=== PATIENT | female | born 1985 | race American Indian/Alaskan Native ===

== ENCOUNTER 2019-06-16 09:37 | Emergency (ER) | payer SELFPAY ==
[2019-06-16] MEDS ORDERED: SODIUM CHLORIDE 0.9% 1000 ML 1,000 ML IV ONE ×2 (11:40→13:48)
[2019-06-16 11:55] LABS: Basophils % (Auto) 0.5 % (0.0-1.8); Eosinophils % (Auto) 0.2 % (0.0-4.3); Hematocrit 37.2 % (30.3-42.9); Hemoglobin 12.3 gm/dl (10.1-14.3); Lymphocytes % (Auto) 17.1 % (13.4-35.0); Mean Corpuscular HGB Conc 33 % (30-34); Mean Corpuscular Volume 81 fl (79-97); Monocytes # (Auto) 0.3 K/mm3 (0.0-0.8); Monocytes % (Auto) 4.9 % (0.0-7.3); Platelet Count 342 K/mm3 (140-440); Red Cell Distribution Width 14.5 % (13.2-15.2)
[2019-06-16 12:00] LABS: Calcium 9.7 mg/dL (8.4-10.2)
[2019-06-16 12:04] LABS: Alanine Aminotransferase 9 units/L (7-56); Albumin 4.6 g/dL (3.9-5)
[2019-06-16 12:09] LABS: Bilirubin,Direct < 0.2 mg/dL (0-0.2)
--- NOTE | 2019-06-16 13:17 | Emergency Department Report ---
ED General Adult HPI - General Chief complaint: Overdose Stated complaint: ACCIDENTAL OVERDOSE Time Seen by Provider: 06/16/19 10:19 Source: patient, EMS Mode of arrival: Stretcher Limitations: No Limitations - History of Present Illness Initial comments: This is a 34-year-old female who is giving a very variable history following a admitted overdose. She told EMS staff that she took a handful of amlodipine because she was mad at her boyfriend. She also stated that she "washed it down with wine". She arrives here and states to me that she only took one 10 mg tablet because her blood pressure was elevated. I asked her what her blood pressure was at the time and she stated she did not take it. She did admit to me that she was upset about her boyfriend. Apparently she told the mental health counselor that she had had a verbal altercation with her boyfriend. She does not admit to previous hospitalizations for overdose. However she has been treated for anxiety and depression in the past. Despite the alleged overdose on calcium trout analia, the patient arrives with tachycardia. -: Gradual Severity scale (0 -10): 0 Associated Symptoms: denies other symptoms - Related Data Allergies Allergy/AdvReac Type Severity Reaction Status Date / Time No Known Allergies Allergy Verified 06/16/19 10:39 ED Review of Systems ROS: Stated complaint: ACCIDENTAL OVERDOSE Other details as noted in HPI Constitutional: denies: chills, fever Eyes: denies: eye pain, eye discharge, vision change ENT: denies: ear pain, throat pain Respiratory: denies: cough, shortness of breath, wheezing Cardiovascular: denies: chest pain, palpitations Endocrine: no symptoms reported Gastrointestinal: denies: abdominal pain, nausea, diarrhea Genitourinary: denies: urgency, dysuria, discharge Musculoskeletal: denies: back pain, joint swelling, arthralgia Skin: denies: rash, lesions Neurological: denies: headache, weakness, paresthesias Psychiatric: as per HPI, anxiety, other (upset about boyfriend). denies: depression Hematological/Lymphatic: denies: easy bleeding, easy bruising ED Past Medical Hx - Past Medical History Previous Medical History?: Yes Hx Hypertension: Yes Hx Psychiatric Treatment: Yes (depression, anxiety) - Surgical History Past Surgical History?: No - Social History Smoking Status: Never Smoker Other Social History: Verbal altercation with boyfriend. ED Physical Exam - General Limitations: No Limitations General appearance: alert, in no apparent distress, anxious - Head Head exam: Present: atraumatic, normocephalic - Eye Eye exam: Present: normal appearance. Absent: scleral icterus - ENT ENT exam: Present: mucous membranes moist - Neck Neck exam: Present: normal inspection. Absent: tenderness, meningismus - Respiratory Respiratory exam: Present: normal lung sounds bilaterally. Absent: respiratory distress - Cardiovascular Cardiovascular Exam: Present: normal rhythm, tachycardia. Absent: systolic murmur, diastolic murmur, rubs, gallop - GI/Abdominal GI/Abdominal exam: Present: soft, normal bowel sounds. Absent: distended, tenderness, guarding, rebound - Extremities Exam Extremities exam: Present: normal inspection - Back Exam Back exam: Present: normal inspection - Neurological Exam Neurological exam: Present: alert, oriented X3, CN II-XII intact. Absent: motor sensory deficit - Psychiatric Psychiatric exam: Present: normal affect, normal mood - Skin Skin exam: Present: warm, dry, intact, normal color. Absent: rash ED Course Vital Signs 06/16/19 06/16/19 06/16/19 10:19 10:30 10:32 Temperature 98.2 F Pulse Rate 136 H 125 H 135 H Respiratory 25 H 28 H 25 H Rate Blood Pressure 110/50 Blood Pressure 104/49 [Left] O2 Sat by Pulse 100 98 100 Oximetry 06/16/19 06/16/19 06/16/19 10:45 11:00 11:15 Temperature Pulse Rate 126 H 120 H 116 H Respiratory 14 25 H 26 H Rate Blood Pressure 104/55 102/54 101/54 Blood Pressure [Left] O2 Sat by Pulse 99 100 100 Oximetry 06/16/19 06/16/19 06/16/19 11:30 11:45 12:00 Temperature Pulse Rate 124 H 122 H 130 H Respiratory 19 12 24 Rate Blood Pressure 103/53 107/55 107/54 Blood Pressure [Left] O2 Sat by Pulse 100 100 100 Oximetry 06/16/19 06/16/19 06/16/19 12:15 12:30 12:45 Temperature Pulse Rate 125 H 129 H 133 H Respiratory 20 19 16 Rate Blood Pressure 102/55 110/56 102/51 Blood Pressure [Left] O2 Sat by Pulse 100 100 100 Oximetry 06/16/19 06/16/19 06/16/19 13:00 13:03 13:15 Temperature Pulse Rate 123 H 125 H 116 H Respiratory 23 19 20 Rate Blood Pressure 111/56 104/58 Blood Pressure 114/54 [Left] O2 Sat by Pulse 100 100 100 Oximetry - Reevaluation(s) Reevaluation #1: Patient with a history of depression and giving guarded history which is quite variable. She will be observed overnight. She will be referred to psychiatry for ultimate decision. She is placed on a mental health hold 1013 status pending psychiatric evaluation. 06/16/19 13:19 Reevaluation #2: 06/16/19 13:29 General with persistent tachycardia in the 110s. She will remain on a playground monitor. She'll be seen by psychiatry tomorrow for final disposition. She is clinically stable at this time. Reevaluation #3: 1013. Patient to remain on the monitor. Psychiatric clearance or disposition is anticipated. 06/16/19 13:49 ED Medical Decision Making - Lab Data Result diagrams: 06/16/19 10:28 06/16/19 10:28 Laboratory Results - last 24 hr 06/16/19 06/16/19 06/16/19 10:28 10:28 10:28 WBC RBC Hgb Hct MCV MCH MCHC RDW Plt Count Lymph % (Auto) [place] % (Auto) Eos % (Auto) Baso % (Auto) Lymph # [place] # Eos # Baso # Seg Neutrophils % Seg Neutrophils # Sodium 138 Potassium 3.7 Chloride 104.6 Carbon Dioxide 18 L Anion Gap 19 BUN 8 Creatinine 1.2 Estimated GFR 51 BUN/Creatinine Ratio 7 Glucose 113 H Calcium 9.7 Total Bilirubin Direct Bilirubin Indirect Bilirubin AST ALT Alkaline Phosphatase Total Protein Albumin Albumin/Globulin Ratio TSH Free T4 Urine Color Urine Turbidity Urine pH Ur Specific [place] Urine Protein Urine Glucose (UA) Urine Ketones Urine Blood Urine Nitrite Ur Reducing Substances Urine Bilirubin Urine Ictotest Urine Urobilinogen Ur Leukocyte Esterase Urine WBC (Auto) Urine RBC (Auto) U Epithel Cells (Auto) Urine Bacteria (Auto) Urine HCG, Qual Salicylates < 0.3 L Urine Opiates Screen Urine Methadone Screen Acetaminophen < 5.0 L Ur Barbiturates Screen Ur Phencyclidine Scrn Ur Amphetamines Screen U Benzodiazepines Scrn Urine Cocaine Screen U Marijuana (THC) Screen Plasma/Serum Alcohol 06/16/19 06/16/19 06/16/19 10:28 10:28 10:28 WBC 5.9 RBC 4.60 Hgb 12.3 Hct 37.2 MCV 81 MCH 27 L MCHC 33 RDW 14.5 Plt Count 342 Lymph % (Auto) 17.1 [place] % (Auto) 4.9 Eos % (Auto) 0.2 Baso % (Auto) 0.5 Lymph # 1.0 L [place] # 0.3 Eos # 0.0 Baso # 0.0 Seg Neutrophils % 77.3 H Seg Neutrophils # 4.5 Sodium Potassium Chloride Carbon Dioxide Anion Gap BUN Creatinine Estimated GFR BUN/Creatinine Ratio Glucose Calcium Total Bilirubin 0.20 Direct Bilirubin < 0.2 Indirect Bilirubin 0.0 AST 14 ALT 9 Alkaline Phosphatase 51 Total Protein 8.2 Albumin 4.6 Albumin/Globulin Ratio 1.3 TSH Free T4 Urine Color Urine Turbidity Urine pH Ur Specific [place] Urine Protein Urine Glucose (UA) Urine Ketones Urine Blood Urine Nitrite Ur Reducing Substances Urine Bilirubin Urine Ictotest Urine Urobilinogen Ur Leukocyte Esterase Urine WBC (Auto) Urine RBC (Auto) U Epithel Cells (Auto) Urine Bacteria (Auto) Urine HCG, Qual Salicylates Urine Opiates Screen Urine Methadone Screen Acetaminophen Ur Barbiturates Screen Ur Phencyclidine Scrn Ur Amphetamines Screen U Benzodiazepines Scrn Urine Cocaine Screen U Marijuana (THC) Screen Plasma/Serum Alcohol < 0.01 06/16/19 06/16/19 06/16/19 12:03 13:03 13:03 WBC RBC Hgb Hct MCV MCH MCHC RDW Plt Count Lymph % (Auto) [place] % (Auto) Eos % (Auto) Baso % (Auto) Lymph # [place] # Eos # Baso # Seg Neutrophils % Seg Neutrophils # Sodium Potassium Chloride Carbon Dioxide Anion Gap BUN Creatinine Estimated GFR BUN/Creatinine Ratio Glucose Calcium Total Bilirubin Direct Bilirubin Indirect Bilirubin AST ALT Alkaline Phosphatase Total Protein Albumin Albumin/Globulin Ratio TSH 2.540 Free T4 1.37 Urine Color Straw Urine Turbidity Clear Urine pH 6.0 Ur Specific [place] 1.004 Urine Protein <15 mg/dl Urine Glucose (UA) Neg Urine Ketones Neg Urine Blood Sm Urine Nitrite Neg Ur Reducing Substances Not Reportable Urine Bilirubin Neg Urine Ictotest Not Reportable Urine Urobilinogen < 2.0 Ur Leukocyte Esterase Neg Urine WBC (Auto) 12.0 H Urine RBC (Auto) 1.0 U Epithel Cells (Auto) < 1.0 Urine Bacteria (Auto) 1+ Urine HCG, Qual Negative Salicylates Urine Opiates Screen Presumptive negative Urine Methadone Screen Presumptive negative Acetaminophen Ur Barbiturates Screen Presumptive negative Ur Phencyclidine Scrn Presumptive negative Ur Amphetamines Screen Presumptive negative U Benzodiazepines Scrn Presumptive negative Urine Cocaine Screen Presumptive negative U Marijuana (THC) Screen Presumptive negative Plasma/Serum Alcohol - EKG Data EKG shows normal: sinus rhythm, axis, intervals, QRS complexes, ST-T waves Rate: tachycardia - EKG Data Interpretation: no acute changes Critical care attestation.: If time is entered above; I have spent that time in minutes in the direct care of this critically ill patient, excluding procedure time. ED Disposition Clinical Impression: Tachycardia Overdose Qualifiers: Encounter type: initial encounter Injury intent: accidental or unintentional Qualified Code(s): T50.901A - Poisoning by unspecified drugs, medicaments and biological substances, accidental (unintentional), initial encounter Suicide gesture Qualifiers: Encounter type: initial encounter Qualified Code(s): X83.8XXA - Intentional self-harm by other specified means, initial encounter Disposition: [id number]/TX-65 PSY HOSP/PSY UNIT Is pt being admited?: No Does the pt Need Aspirin: No Condition: Stable Referrals: PRIMARY CARE, [Primary Care Provider] - 3-5 Days Time of Disposition: 13:50
[2019-06-16 13:21] LABS: Amphetamine Screen,Urine PRESUMPTIVE NEGATIVE; Benzodiazepines Screen,Urine PRESUMPTIVE NEGATIVE; Cannabinoid Screen,Urine PRESUMPTIVE NEGATIVE; Cocaine Screen,Urine PRESUMPTIVE NEGATIVE; Methadone Screen,Urine PRESUMPTIVE NEGATIVE; Opiate Screen,Urine PRESUMPTIVE NEGATIVE
[2019-06-16 13:22] LABS: HCG Qualitative,Urine Negative (Negative)
[2019-06-16 13:23] LABS: Bacteria,Urine 1+ /HPF (Negative); Bilirubin,Urine NEG (Negative); Blood,Urine SM (Negative); Color,Urine Straw (Yellow); Protein,Urine <15 mg/dL mg/dL (Negative); Urobilinogen,Urine < 2.0 mg/dL (<2.0)
[2019-06-16 13:25] LABS: Free T4 (Free Thyroxine) 1.37 ng/dL (0.76-1.46)
[2019-06-16] MEDS ORDERED: LORazepam 2 MG/ML VIAL IV ONE (19:42)
[2019-06-16] MEDS ORDERED: LORazepam 2 MG TAB ONE (22:37)
[2019-06-16] MEDS ORDERED: LORazepam 1 MG TAB PO ONE (22:53)
[2019-06-17 06:50] VITALS: BP 108/62
== END 2019-06-17 05:10 | disposition home or self-care (01) ==
LOC: ED 09:37
DX: T46.1X2A Poisoning by calcium-channel blockers, intentional self-harm, initial encounter (principal); R00.0 Tachycardia, unspecified; I10 Essential (primary) hypertension; F32.9 Major depressive disorder, single episode, unspecified; F41.9 Anxiety disorder, unspecified; X83.8XXA Intentional self-harm by other specified means, initial encounter; Y93.89 Activity, other specified; Y92.89 Other specified places as the place of occurrence of the external cause; Y99.8 Other external cause status
CPT/HCPCS: 36415; 80048; 80076; 80307; 81001; 81025; 84439; 84443; 85025; 87086; 93005; 93010; 99284; J7030; 80320; G0480; J2060